=== PATIENT | female | born 1985 | race Caucasian/White ===

== ENCOUNTER 2024-11-19 10:17 | Emergency (ER) | payer MEDICAID ==
[~2024-11-19] VITALS: Ht 172.7 cm; Wt 87.3 kg
[~2024-11-19 10:17] MED LIST: NO HOME MEDS
[2024-11-19 11:01] LABS: BASOPHILS % (AUTO) 0.8 % (0-1); EOSINOPHILS # (AUTO) 0.3 X10'3 (0-0.9); EOSINOPHILS % (AUTO) 4.4 % (0-6); HEMATOCRIT 45.4 % (35.0-45.0); HEMOGLOBIN 15.9 g/dl (12.0-16.0); LYMPHOCYTES # (AUTO) 1.6 X10'3 (1.1-4.8); LYMPHOCYTES % (AUTO) 27.2 % (21-51); MEAN CORPUSCULAR HEMOGLOBIN 31.3 PG (27.0-31.0); MEAN CORPUSCULAR VOLUME 89.4 FL (78-98); MEAN PLATELET VOLUME 7.7 FL (7.4-10.4); MONOCYTES # (AUTO) 0.3 X10'3 (0-0.9); MONOCYTES % (AUTO) 5.5 % (2-12); NEUTROPHILS # (AUTO) 3.8 X10'3 (1.8-7.7); NEUTROPHILS % (AUTO) 62.1 % (42-75); PLATELET COUNT 229 X10'3 (140-440); RED BLOOD COUNT 5.08 X10'6 (4.20-5.60); RED CELL DISTRIBUTION WIDTH 13.6 % (11.5-14.5); WHITE BLOOD COUNT 6.1 X10'3 (4.5-11.0)
[2024-11-19] MEDS: ondansetron/PF 4mg/2ml inj IV ONE (11:17)
[2024-11-19 11:18] LABS: BILIRUBIN,URINE NEGATIVE (Neg); CLARITY,URINE CLEAR (Clear); COLOR,URINE YELLOW (Yellow); GLUCOSE, URINE NEGATIVE (Neg); KETONES,URINE NEGATIVE (Neg); LEUKOCYTE ESTERASE ,URINE NEGATIVE (Neg); NITRITES, URINE NEGATIVE (Neg); OCCULT BLOOD,URINE NEGATIVE (Neg); PH,URINE 7.5 (4.8-8.0); PROTEIN,URINE NEGATIVE (Neg); UROBILINOGEN,URINE 0.2 E.U/dL (0.2-1.0)
[2024-11-19] MEDS: ketorolac trometh 15mg/ml vial 15 MG/ML ML IV ONE (11:18)
[2024-11-19 11:20] LABS: ALANINE AMINOTRANSFERASE 16 U/L (12-78); ALBUMIN 4.3 G/DL (3.4-5.0); ALBUMIN/GLOBULIN RATIO 1.3 (1.1-1.5); ALKALINE PHOSPHATASE 91 IU/L (46-116); ANION GAP 12 (8-16); ASPARTATE AMINO TRANSFERASE 13 U/L (10-37); BILIRUBIN,TOTAL 0.5 MG/DL (0.1-1.0); BLOOD UREA NITROGEN 12 MG/DL (7-18); BUN/CREATININE RATIO 14.6 (10.0-20.0); CALCIUM 9.4 MG/DL (8.5-10.1); CHLORIDE 105 MMOL/L (99-107); CREATININE 0.82 MG/DL (0.40-0.90); GLUCOSE 88 MG/DL (70-104); POTASSIUM 4.1 MMOL/L (3.5-5.1); SODIUM 140 MMOL/L (135-145); TOTAL PROTEIN 7.5 G/DL (6.4-8.2); eCRCL 93 ML/MIN; eGFR 78 ML/MIN
[2024-11-19 11:22] LABS: UA COLLECTION TYPE CLN CATCH MIDSTREAM
[2024-11-19 11:30] LABS: LIPASE 40 U/L (16-77)
[2024-11-19 11:40] LABS: BETA HCG,QUANTITATIVE < 1.0 mIU/ml
[2024-11-19] MEDS ORDERED: iohexol 300mg/ml 100ml inj. ONE (12:14)
[2024-11-19] MEDS ORDERED: METH-798 PO (13:36)
[2024-11-19] MEDS ORDERED: PRED50TA PO (13:36)
[2024-11-19 13:49] VITALS: BP 141/92; PULSE 78; RESP 16; TEMP 98.1; O2SAT 99
== END 2024-11-19 13:53 | disposition home or self-care (01) ==
LOC: ER 10:17
DX: M54.6 Pain in thoracic spine (principal); R10.12 Left upper quadrant pain
CPT/HCPCS: 36415; 74177; 80053; 81003; 83690; 84702; 85025; 96374; 96375; 99285; J1885; J2405; Q9967